=== PATIENT | female | born 1945 | race Caucasian/White ===

== ENCOUNTER → 2016-12-03 | Outpatient (CLI) | payer BC ==
[2014-01-03 13:20] VITALS: BP 126/60
[~2016-12-03] MED LIST: ACET325T9 PO; CALC500T54 PO; DIPH25CA58 PO; DOXY100T PO; FENO48TA16 PO; METF500T4 PO; METH4TAB6 PO; MULT1TAB97 PO; ONDA4TAB10 PO; OXYC-323 PO; PANT20TA3 PO; RISE150T3 PO
--- NOTE | 2016-12-03 10:35 | RAD ---
DATE: 12/03/2016 EXAM: MAMMO MAURILIO SCREENING BILATERAL HISTORY: Screening COMPARISON: One year earlier This study was interpreted with the benefit of Computerized Aided Detection (CAD). FINDINGS: Breast Density: SCATTERED The breast parenchyma shows scattered fibroglandular densities. Breast parenchyma level B. There has been little change in the appearance of the breasts compared to the previous exam IMPRESSION: Benign findings BI-RADS CATEGORY: 2 BENIGN FINDING(S) RECOMMENDED FOLLOW-UP: 12M 12 MONTH FOLLOW-UP PQRS compliance statement: Patient information was entered into a reminder system with a target due date 12/03/2017 for the next mammogram. Mammography is a sensitive method for finding small breast cancers, but it does not detect them all and is not a substitute for careful clinical examination. A negative mammogram does not negate a clinically suspicious finding and should not result in delay in biopsying a clinically suspicious abnormality. "Our facility is accredited by the [employer] Mammography [employer]."
== END | disposition home or self-care (01) ==
LOC: MAMMO 09:42
PROVIDERS: ATTEND Physician Assistant Medical
DX: Z12.31 Encounter for screening mammogram for malignant neoplasm of breast (principal)
CPT/HCPCS: 77063; G0202; 77067

== ENCOUNTER → 2017-07-21 | Outpatient (CLI) | payer BC ==
[2014-01-03 13:20] VITALS: BP 126/60
[~2017-07-21] MED LIST changes: -METF500T4 PO; +METF500T5 PO
--- NOTE | 2017-07-21 17:19 | RAD ---
TOES RIGHT History: INJURED RT 4TH TOES THIS MORNING, BRUISING AND PAIN STILL. Comparison: None are available 3 views were obtained of the right fourth toe. On the image of the entire foot, there is some transverse lucency through the distal head of the fourth proximal phalanx, suspicious for a nondisplaced fracture, although there is also overlying soft tissue lucency here. More difficult to confirm on other views but there does appear to be mild cortical angulation at the medial aspect in the same location, on the coned-down AP image. No evidence of dislocation. IMPRESSION: Findings are suspicious for a nondisplaced fracture involving the distal aspect of the proximal fourth phalanx. Electronically signed by: Jose Colón MD (07/21/2017 5:15 PM) [id number]
== END | disposition home or self-care (01) ==
LOC: PMG 13:48
PROVIDERS: ATTEND Physician Assistant Medical
DX: M79.674 Pain in right toe(s) (principal)
CPT/HCPCS: 73660

== ENCOUNTER → 2017-12-04 | Outpatient (CLI) | payer BC ==
[2014-01-03 13:20] VITALS: BP 126/60
[~2017-12-04] MED LIST changes: +METF500T16 PO; -METF500T5 PO
--- NOTE | 2017-12-04 15:01 | RAD ---
DATE: 12/04/2017 EXAM: MAMMO MAURILIO SCREENING BILATERAL HISTORY: Routine screening COMPARISON: 12/03/2016 This study was interpreted with the benefit of Computerized Aided Detection (CAD). Breast Density: SCATTERED The breast parenchyma shows scattered fibroglandular densities. Breast parenchyma level B. FINDINGS: 2-D and 3-D tomosynthesis imaging was performed in CC and MLO projections. No new or enlarging breast densities are seen. Minimal benign type calcifications present. No suspicious microcalcifications have developed. IMPRESSION: Stable mammograms without evidence of malignancy. BI-RADS CATEGORY: 2 BENIGN FINDING(S) RECOMMENDED FOLLOW-UP: 12M 12 MONTH FOLLOW-UP PQRS compliance statement: Patient information was entered into a reminder system with a target due date for the next mammogram. Mammography is a sensitive method for finding small breast cancers, but it does not detect them all and is not a substitute for careful clinical examination. A negative mammogram does not negate a clinically suspicious finding and should not result in delay in biopsying a clinically suspicious abnormality. "Our facility is accredited by the [employer] Mammography [employer]."
== END | disposition home or self-care (01) ==
LOC: MAMMO 12:31
PROVIDERS: ATTEND Physician Assistant Medical
DX: Z12.31 Encounter for screening mammogram for malignant neoplasm of breast (principal)
CPT/HCPCS: 77063; 77067

== ENCOUNTER → 2018-12-07 | Outpatient (CLI) | payer BC, MEDICARE ==
[2014-01-03 13:20] VITALS: BP 126/60
[~2018-12-07] MED LIST changes: -OXYC-323 PO; +OXYC1TAB15 PO
--- NOTE | 2018-12-07 15:11 | RAD ---
DATE: 12/07/2018. EXAM: MAMMO MAURILIO SCREENING BILATERAL. HISTORY: Routine mammographic screening. COMPARISON: 12/05/1979. This study was interpreted with the benefit of Computerized Aided Detection (CAD). FINDINGS: Breast Density: SCATTERED The breast parenchyma shows scattered fibroglandular densities. Breast parenchyma level B.. Scattered and vascular calcifications are benign. There are no suspicious masses, microcalcifications or architectural distortion. The parenchymal pattern is stable. BI-RADS CATEGORY: 2 BENIGN FINDING(S). RECOMMENDED FOLLOW-UP: 12M 12 MONTH FOLLOW-UP. PQRS compliance statement: Patient information was entered into a reminder system with a target due date 12/08/2019 for the next mammogram. Mammography is a sensitive method for finding small breast cancers, but it does not detect them all and is not a substitute for careful clinical examination. A negative mammogram does not negate a clinically suspicious finding and should not result in delay in biopsying a clinically suspicious abnormality. "Our facility is accredited by the [employer] Mammography [employer]."
== END | disposition home or self-care (01) ==
LOC: MAMMO 08:30
PROVIDERS: ATTEND Physician Assistant Medical
DX: Z12.31 Encounter for screening mammogram for malignant neoplasm of breast (principal); N64.89 Other specified disorders of breast
CPT/HCPCS: 77063; 77067

== ENCOUNTER → 2018-12-15 | Outpatient (CLI) | payer BC, MEDICARE ==
[2014-01-03 13:20] VITALS: BP 126/60
--- NOTE | 2018-12-15 16:29 | RAD ---
EXAM: Dual energy x-ray absorptiometry (DEXA). HISTORY: Post menopausal screening. TECHNIQUE: Dual energy x-ray absorptiometry of the lumbar spine and the right hip was performed. T-score of average bone mineral density based was calculated based on standard deviations above or below the expected young adult normal value. Diagnostic definitions were established by the World Health Organization. FINDINGS: The average bone mineral density associated with L1-L4 is 0.950 g/cm^2, corresponding with a T-score of -1.9. The average total bone mineral density associated with both hips is 0.705 g/cm^2, corresponding with a T-score of -2.0. No comparison examinations are available. Refer to the worksheets for full detail. IMPRESSION: 1. Osteopenia. Average bone mineral density yields a T-score between -1.0 and -2.5. Fracture risk is increased. Electronically signed by: Zoraida Franco MD (12/15/2018 4:26 PM) [facility]
== END | disposition home or self-care (01) ==
LOC: DXRAD 08:47
PROVIDERS: ATTEND Physician Assistant Medical
DX: M85.88 Other specified disorders of bone density and structure, other site (principal); Z78.0 Asymptomatic menopausal state
CPT/HCPCS: 77080

== ENCOUNTER → 2019-12-10 | Outpatient (CLI) | payer BC, MEDICARE ==
[2014-01-03 13:20] VITALS: BP 126/60
[~2019-12-10] MED LIST changes: -PANT20TA3 PO; +PANT20TA4 PO
--- NOTE | 2019-12-13 09:56 | RAD ---
BILATERAL SCREENING MAMMOGRAM, 3-D History: Routine screening. Comparison: 12/07/2018, 12/04/2017, 12/03/2016, 11/25/2014. Technique: MLO and CC digital tomosynthesis (3D) images obtained. Radiologist reviewed these images on dedicated workstation. Findings: Breast Tissue Density B : There are scattered areas of fibroglandular density. There are no dominant masses, suspicious microcalcifications, or architectural distortion. IMPRESSION: No mammographic evidence of malignancy. Recommend routine screening. BI-RADS category 1: Negative. The images were reviewed with computer-aided detection. Patient information is entered into reminder system with a target due date for the next screening mammogram. Mammography is the most sensitive method for finding small breast cancers, but it does not detect them all and is not a substitute for careful clinical examination. A negative mammogram does not negate a clinically suspicious finding and should not result in delay in biopsying a clinically suspicious abnormality. "Our facility is accredited by the [employer] Mammography [employer]." Electronically signed by: Silver Patel MD (12/13/2019 9:53 AM) [id number]
== END ==
LOC: MAMMO 12-09 08:15
PROVIDERS: ATTEND Physician Assistant Medical
DX: Z12.31 Encounter for screening mammogram for malignant neoplasm of breast (principal)
CPT/HCPCS: 77063; 77067

== ENCOUNTER → 2020-10-10 | Day surgery (SDC) | payer BC, MEDICARE ==
[~2020-10-10] MED LIST changes: +IPRATRPIUM/ALBUTEROL 0.5/2.5MG 3 ML NEBU. NEB PRN; +IV RINGERS SOLUTION,LACTATED 1,000 ML IV SCH; +LIDOCAINE 2% PF 5 ML VIAL. ONE; +METF10007 PO; +MIDAZOLAM HCL PF 2 MG/2 ML VIAL. IV ONE; +ONDANSETRON PF 4 MG/2 ML VIAL. IV PRN; +PROPOFOL 10,000 MCG/ML (20ML) VIAL IV ONE; +SPIR100T4 PO; +trulicity SQ
[2020-10-10 12:31] VITALS: BP 137/85
--- NOTE | 2020-10-13 16:11 | PATHOLOGY ---
[facility] Accession Number: [id number] . 01 Material submitted: . stomach - ANTRUM FOR H. PYLORI. Modifiers: ANTRUM . 01 Clinical history: . DYSPHAGIA, HIST. OF POLYPS EGD/COLONOSCOPY . 02 Diagnosis: Gastric biopsy, antrum: - Chronic gastritis, mild. (JPM:delfin; 10/13/2020) S 10/13/2020 0849 Local . 02 Comment: Sections of the gastric antral biopsy reveal segments of gastric antral/body transition mucosa showing congestion and mild chronic inflammation. A properly controlled immunoperoxidase stain for Helicobacter is negative for Helicobacter organisms. (JPM:delfin; 10/13/2020) . Special stain performed: Immunoperoxidase stain for Helicobacter on A1 . 02 Electronically signed: . Laurent Rios MD, Pathologist NPI- [id number] . 01 Gross description: . The specimen is received in formalin, labeled "Lord, Anitra, antrum for H. pylori". Received is a single segment of pale santana tissue measuring 0.4 cm in maximum dimensions. The specimen is submitted entirely in cassette A1. ([facility]; 10/12/2020) NRI/NRI 10/12/2020 1118 Local . 02 Pathologist provided ICD-10: K29.50 . 02 CPT . 165853, O06310 Specimen Comment: A courtesy copy of this report has been sent to [phone] Specimen Comment: [id number] Specimen Comment: Report sent to / DR LUNA Performed at: [address], [place], [place] [id number] MD Lele Mckay MD Phone: [phone] Performed at: 02 [facility] [address] [place], [place] [id number] MD Laurent Rios MD Phone: [phone]
== END ==
LOC: SURG 09:57
PROVIDERS: ATTEND Internal Medicine Gastroenterology
DX: Z12.11 Encounter for screening for malignant neoplasm of colon (principal); Z86.010 Personal history of colon polyps; K57.30 Diverticulosis of large intestine without perforation or abscess without bleeding; K29.50 Unspecified chronic gastritis without bleeding; K44.9 Diaphragmatic hernia without obstruction or gangrene; R13.10 Dysphagia, unspecified; K21.9 Gastro-esophageal reflux disease without esophagitis; E11.9 Type 2 diabetes mellitus without complications; F41.9 Anxiety disorder, unspecified; Z98.890 Other specified postprocedural states; Z79.899 Other long term (current) drug therapy; Z88.8 Allergy status to other drugs, medicaments and biological substances; Z20.822 Contact with and (suspected) exposure to COVID-19
CPT/HCPCS: 43239; 43450; 82947; 88305; 88342; C9803; G0105; J2001; J2704; J7120; U0003; 43249; 45378

== ENCOUNTER → 2020-12-11 | Outpatient (CLI) | payer BC, MEDICARE ==
[2020-10-10 12:31] VITALS: BP 137/85
[~2020-12-11] MED LIST changes: -IPRATRPIUM/ALBUTEROL 0.5/2.5MG 3 ML NEBU. NEB PRN; -IV RINGERS SOLUTION,LACTATED 1,000 ML IV SCH; -LIDOCAINE 2% PF 5 ML VIAL. ONE; -MIDAZOLAM HCL PF 2 MG/2 ML VIAL. IV ONE; -ONDANSETRON PF 4 MG/2 ML VIAL. IV PRN; -PROPOFOL 10,000 MCG/ML (20ML) VIAL IV ONE
--- NOTE | 2020-12-11 17:19 | RAD ---
Bilateral digital screening mammogram to include digital breast tomosynthesis (3-D mammography) 12/11 CLINICAL HISTORY: Screening study. Digital MLO and CC mammograms of both breasts were obtained. Additionally digital breast tomosynthesi s images (3-D mammography) of both breasts in the CC and MLO projections were obtained. Comparison studies are dated 12/10/2019, 12/07/2018, and 12/04/2017. The breast parenchyma is composed of scattered fibroglandular densities which can obscure a lesion on mammography (breast density B). Benign-appearing and vascular calcifications are seen scattered thro ughout both breasts. No spiculated mass is seen. No malignant appearing calcification or area of arch itectural distortion is noted. Digital breast tomosynthesis images demonstrate no spiculated mass. No malignant appearing calcificat ion is seen. Impression: BI-RADS Category 1: Negative. There is no mammographic evidence of malignancy. Routine y early screening mammography is recommended for follow-up. This examination was reviewed with the aid of computer-aided detection. A mammogram does not have 100% sensitivity and therefore a negative imaging study should not delay fu rther work up of a suspicious abnormality. Patient information is entered into the reminder system with a target due date for the next screening mammogram of 12/11/2021 "Our facility is accredited by the [employer] Mammography [employer]." Electronically signed by: Marlo Alicea MD (12/11/2020 5:16 PM) [email or web address]
== END ==
LOC: MAMMO 09:19
PROVIDERS: ATTEND Physician Assistant Medical
DX: Z12.31 Encounter for screening mammogram for malignant neoplasm of breast (principal)
CPT/HCPCS: 77063; 77067